=== PATIENT | female | born 1990 | race Two or more races ===

== ENCOUNTER 2017-09-25 11:14 | Emergency (ER) | payer SELFPAY ==
[2017-09-25 12:32] LABS: #Basophils 0.1 thou/uL (0.0-0.2); #Eosinphils 0.2 thou/uL (0.0-0.7); #Lymphocytes 1.8 thou/uL (1.20-3.40); #Monocytes 0.7 thou/uL (0.11-0.59); %Basophils 0.8 % (0.0-1.0); %Eosinophils 2.3 % (0.0-10.0); %Lymphocytes 23.3 % (21.0-51.0); %Neutrophils 64.7 % (42.0-75.0); Hemoglobin 12.2 g/dL (12.0-16.0); Mean Corpuscular HGB CONC 34.8 g/dL (32.0-36.0); Mean Corpuscular Hemoglobin 32.6 pg (27.0-31.0); Mean Corpuscular Volume 93.9 fl (81.0-99.0); Mean Platelet Volume 7.2 fL (7.4-10.4); Platelet Count 231 thou/uL (130-400); RBC Distribution Width 11.6 % (11.5-14.5); Red Blood Cell (RBC) Count 3.75 mill/uL (4.20-5.40); White Blood Cell (WBC) Count 7.7 thou/uL (4.8-10.8)
[2017-09-25 12:52] LABS: Anion Gap 9 mmol/L (10-20); BUN (Urea Nitrogen) 14 mg/dL (7.0-18.7); Calc. Creatinine Clearance 0 mL/min (70-130); Calcium 8.9 mg/dL (7.8-10.44); Carbon Dioxide 26 mmol/L (22-29); Chloride 109 mmol/L (98-107); Estimated GFR-MDRD Greater than 90; Glucose 83 mg/dL (70-105); Potassium 3.6 mmol/L (3.5-5.1); Sodium 140 mmol/L (136-145)
--- NOTE | 2017-09-25 13:20 | ULT ---
RIGHT LOWER EXTREMITY VENOUS DOPPLER ULTRAOSUND: Date: 09-25-17 Comparison: None. History: Pain in the right inguinal region. Technique: Multiplanar grayscale sonographic imaging of the venous structures of the right lower extr emity obtained with color flow and spectral analysis. FINDINGS: Right common femoral vein, greater saphenous vein, profunda femoral vein, femoral vein, popliteal vei n, and posterior tibial vein are patent. There is no evidence for deep venous thrombosis of the right lower extremity. Incidental note is made of a thrombosed superficial vein in the right inguinal/groin region in the area of patient reported pain. There are multiple mildly prominent nodes in the right inguinal re gion, nonspecific. IMPRESSION: No evidence for deep venous thrombosis in the right lower extremity. Note is made of a small superfic ial thrombosed vein in the area of pain in the right groin/right inguinal region. POS: BRUNILDA
== END 2017-09-25 13:19 | disposition home or self-care (01) ==
LOC: ERS 11:14
DX: I80.9 Phlebitis and thrombophlebitis of unspecified site (principal); R59.1 Generalized enlarged lymph nodes; F17.210 Nicotine dependence, cigarettes, uncomplicated
CPT/HCPCS: 36415; 80048; 85025

== ENCOUNTER 2019-05-21 09:38 | Emergency (ER) | payer SELFPAY | END 2019-05-21 11:00 | disposition home or self-care (01) | LOC: ERS 09:38 | DX: B34.9 Viral infection, unspecified (principal); F17.210 Nicotine dependence, cigarettes, uncomplicated | CPT/HCPCS: 87804; 94640; J7620 ==